=== PATIENT | male | born 1930 | race Hispanic/Latino ===

== ENCOUNTER 2016-12-04 08:23 | Day surgery (SDC) | payer MEDICARE ==
[2016-09-14 08:41] VITALS: BMI 27.3
[2016-12-04 09:10] LABS: ADD MANUAL DIFF? NO
[2016-12-04 09:17] LABS: BASO # 0.02 K/mm3 (0.0-2.0); BASO % 0.4 % (0.0-3.0); EOS # 0.1 (0.0-0.7); EOS % 1.9 % (1.5-5.0); GRAN # 3.49 (1.4-6.5); HEMATOCRIT 40.8 % (42.0-52.0); LYMPH # 1.1 (1.2-3.4); MEAN CELL VOLUME 96.5 fL (80.0-105.0); MEAN CORPUSCULAR HEMOGLOBIN 31.9 pg (25.0-35.0); MEAN CORPUSCULAR HGB CONC 33.1 g/dl (31.0-37.0); MEAN PLATELET VOLUME 10.5 fl (7.0-11.0); MONO # 0.6 (0.1-0.6); MONO % 11.7 % (1.0-6.0); PLATELET COUNT 189 10^3/uL (120.0-450.0); RED CELL DISTRIBUTION WIDTH 13.4 % (11.5-14.5); WHITE BLOOD COUNT 5.3 10^3/ul (4.5-11.0)
[2016-12-04 09:25] LABS: ALB/GLOB RATIO 1.1 (1.1-1.8); ALKALINE PHOSPHATASE 59 U/L (38-133); ALT/SGPT 32 U/L (7-56); AST/SGOT 31 U/L (15-59); BILIRUBIN,TOTAL 1.7 mg/dL (0.2-1.3); BLOOD UREA NITROGEN 21 mg/dL (7-21); CALCIUM 9.2 mg/dL (8.4-10.5); CARBON DIOXIDE 25 mmol/L (21-33); CHLORIDE 103 mmol/L (95-110); GFR AFRICAN-AMERICAN > 60; GLUCOSE,RANDOM 115 mg/dL (70-110); INR 1.05 (0.93-1.08); PARTIAL THROMBOPLASTIN TIME 25.9 Seconds (23.7-30.8); POTASSIUM 4.6 mmol/L (3.6-5.0); SODIUM 140 mmol/L (132-148); TOTAL PROTEIN 7.8 g/dL (5.8-8.3)
[2016-12-04] MEDS ORDERED: Propofol 10 mg/ml Inj (20 ML) ONE (10:02)
[2016-12-04] MEDS ORDERED: Midazolam 2 MG/2 ML VIAL ONE (10:17)
[2016-12-04] MEDS ORDERED: Lactated Ringer's 1,000 ML IV SCH (11:15)
[2016-12-04] MEDS ORDERED: Methylene Blue 10 mg/ml (1ml) Inj ONE (11:19)
--- NOTE | 2016-12-04 11:44 | CARD ---
APPROVED REPORT EKG Measurement Heart [id number] AL [id number] <Conclusion> Sinus rhythm with frequent premature ventricular complexes in a pattern of bigeminy Right bundle branch block Inferior infarct, age undetermined Abnormal ECG
[2016-12-06 15:31] VITALS: BP 130/61; PULSE 61; RESP 16; TEMP 97.4; O2SAT 92
== END 2016-12-04 12:52 | disposition home or self-care (01) ==
LOC: ENDO 08:23
PROVIDERS: ATTEND Internal Medicine Gastroenterology
DX: D12.2 Benign neoplasm of ascending colon (principal); K64.8 Other hemorrhoids; K57.30 Diverticulosis of large intestine without perforation or abscess without bleeding
CPT/HCPCS: 36415; 45380; 45381; 45385; 45388; 80053; 85025; 85610; 85730; 88305; 93005; J2250; J2704; J3010; J7040; J7120; Q9968

== ENCOUNTER 2017-02-19 06:06 | Day surgery (SDC) | payer MEDICARE ==
[2016-09-14 08:41] VITALS: BMI 27.3
[2017-02-19] MEDS ORDERED: Lidocaine 2% Inj (20ml) ONE (06:37)
[2017-02-19] MEDS ORDERED: Atropine 0.4 mg/ml Inj (1 mL) ONE (06:37)
[2017-02-19] MEDS ORDERED: Phenylephrine 10 mg/ml Inj ONE (06:37)
[2017-02-19 06:38] LABS: ADD MANUAL DIFF? NO
[2017-02-19] MEDS ORDERED: Iohexol 350mgl/ml 50 ML ONE (06:38)
[2017-02-19] MEDS ORDERED: Iodixanol 320 MG/ML 100 ML BOTTLE IV ONE (06:38)
[2017-02-19] MEDS ORDERED: Iodixanol 320 MG/ML 200 ML BOTTLE IV ONE (06:38)
[2017-02-19] MEDS ORDERED: Nitroglycerin 50mg in D5W 50 MG/250 ML BOTTLE IV ONE (06:38)
[2017-02-19 06:59] LABS: BLOOD UREA NITROGEN 28 mg/dL (7-21); CARBON DIOXIDE 26 mmol/L (21-33); CHLORIDE 106 mmol/L (98-107); GFR AFRICAN-AMERICAN > 60; GLUCOSE,RANDOM 108 mg/dL (70-110); INR 1.01 (0.93-1.08); PARTIAL THROMBOPLASTIN TIME 26.4 Seconds (23.7-30.8); POTASSIUM 4.9 mmol/L (3.6-5.0); SODIUM 141 mmol/L (132-148)
[2017-02-19 07:03] LABS: BASO # 0.02 K/mm3 (0.0-2.0); BASO % 0.4 % (0.0-3.0); EOS # 0.2 (0.0-0.7); EOS % 3.3 % (1.5-5.0); GRAN # 3.24 (1.4-6.5); GRAN % 60.1 % (50.0-68.0); HEMATOCRIT 39.8 % (42.0-52.0); LYMPH # 1.4 (1.2-3.4); MEAN CELL VOLUME 97.5 fL (80.0-105.0); MEAN CORPUSCULAR HEMOGLOBIN 32.1 pg (25.0-35.0); MEAN CORPUSCULAR HGB CONC 32.9 g/dl (31.0-37.0); MEAN PLATELET VOLUME 10.4 fl (7.0-11.0); MONO # 0.6 (0.1-0.6); MONO % 10.2 % (1.0-6.0); PLATELET COUNT 190 10^3/uL (120.0-450.0); RED CELL DISTRIBUTION WIDTH 13.3 % (11.5-14.5); WHITE BLOOD COUNT 5.4 10^3/ul (4.5-11.0)
[2017-02-19] MEDS ORDERED: Midazolam 2 MG/2 ML VIAL ONE ×2 (07:17→07:33)
[2017-02-19 08:29] VITALS: TEMP 97.9
[2017-02-19] MEDS ORDERED: Sodium Chloride 0.9% 1,000 ML IV SCH (08:30)
[2017-02-19 11:58] VITALS: RESP 18
[2017-02-19 12:42] VITALS: BP 148/73; PULSE 45; O2SAT 99
--- NOTE | 2017-02-19 15:01 | CARD ---
APPROVED REPORT EKG Measurement Heart [id number] NC [id number] <Conclusion> Sinus rhythm with frequent premature ventricular complexes, in a bigeminy pattern Right bundle branch block Inferior infarct, age undetermined Abnormal ECG
--- NOTE | 2017-02-19 16:39 | CARDCATH ---
PROCEDURE DATE: 02/19/2017 HISTORY OF PRESENT ILLNESS: The patient is an 86-year-old male with a history of diabetes mellitus, hypertension and hypercholesterolemia who presents with chest pain. A stress test was abnormal. Bec ause of this, cardiac catheterization was recommended. PROCEDURE: Left heart catheterization with coronary angiography and left ventriculogram. The right femoral artery was cannulated with a 6-[place] sheath. There were no complications. The findings on catheterization revealed a left ventricle that contracted normally. Estimated ejecti on fraction is 55%. His coronary anatomy revealed a right dominant circulation. The RCA was selectively cannulized and found to have intimal irregularities without significant steno sis. The left main artery was unremarkable. The LAD revealed diffuse atherosclerosis and a tortuous mid to distal LAD. In the distal portion of the LAD, there was a 50% stenosis seen. The diagonal vessels revealed intimal irregularities without significant stenosis. The circumflex artery and obtuse marginal branches were free of significant disease. The patient tolerated the procedure well. Angio-Seal was used to close the femoral artery site. SUMMARY: The procedure revealed single vessel coronary artery disease with a 50% stenosis in the dis og portion of the left anterior descending, which would explain his abnormal stress test. The left ventricular function is normal. Given these findings, the patient's treatment will be continued medical therapy with daily aspirin, s tatin therapy and a cardiac risk reduction program. Mitch Hill MD cc: [facility] TT: 02/19/2017 16:38:15 en
== END 2017-02-19 13:50 | disposition home or self-care (01) ==
LOC: CATH 06:06
PROVIDERS: ATTEND Internal Medicine Cardiovascular Disease
DX: I25.10 Atherosclerotic heart disease of native coronary artery without angina pectoris (principal); E78.00 Pure hypercholesterolemia, unspecified
CPT/HCPCS: 36415; 80048; 85025; 85610; 85730; 86850; 86900; 93005; 93458; 99152; C1760; C1769; C2629; J1644; J2250; J3010; J7030; J7040; Q9967 ×2

== ENCOUNTER 2017-04-13 06:48 | Day surgery (SDC) | payer MEDICARE ==
[2016-09-14 08:41] VITALS: BMI 27.3
[2017-04-13 07:07] VITALS: TEMP 98
[2017-04-13] MEDS ORDERED: Methylene Blue 10 mg/mL(10ml) IV ONE (08:03)
[2017-04-13] MEDS ORDERED: Methylene Blue 10 mg/ml (1ml) Inj ONE (08:05)
[2017-04-13] MEDS ORDERED: Propofol 10 mg/ml Inj (20 ML) ONE (09:05)
[2017-04-13] MEDS ORDERED: Sodium Chloride 0.9% 1,000 ML IV SCH (09:45)
[2017-04-13 09:54] VITALS: RESP 16
[2017-04-13 11:11] VITALS: BP 130/76; PULSE 70; O2SAT 96
== END 2017-04-13 11:07 | disposition home or self-care (01) ==
LOC: ENDO 06:48
PROVIDERS: ATTEND Internal Medicine Gastroenterology
DX: D12.2 Benign neoplasm of ascending colon (principal); K57.30 Diverticulosis of large intestine without perforation or abscess without bleeding; K64.8 Other hemorrhoids; I10 Essential (primary) hypertension; E11.9 Type 2 diabetes mellitus without complications
CPT/HCPCS: 45381; 45385; 82948; 88305; J2704; J7040

== ENCOUNTER 2018-09-19 07:13 | Day surgery (SDC) | payer MEDICARE ==
[2016-09-14 08:41] VITALS: BMI 27.3
[2018-09-19] MEDS ORDERED: Propofol 10 mg/ml Inj (20 ML) ONE (08:46)
[2018-09-19] MEDS ORDERED: Etomidate 20 mg/10ml Inj IV ONE (08:47)
[2018-09-19] MEDS ORDERED: Sodium Chloride 0.9% 1,000 ML IV SCH (09:15)
[2018-09-19 10:29] VITALS: RESP 18; TEMP 97.6
[2018-09-19 10:30] VITALS: BP 137/60; PULSE 44; O2SAT 92
== END 2018-09-19 10:38 | disposition home or self-care (01) ==
LOC: ENDO 07:13
PROVIDERS: ATTEND Internal Medicine Gastroenterology
DX: Z12.11 Encounter for screening for malignant neoplasm of colon (principal); D12.5 Benign neoplasm of sigmoid colon; K57.30 Diverticulosis of large intestine without perforation or abscess without bleeding; K64.8 Other hemorrhoids; K62.89 Other specified diseases of anus and rectum; Z86.010 Personal history of colon polyps; E11.9 Type 2 diabetes mellitus without complications; I10 Essential (primary) hypertension
CPT/HCPCS: 45380; 82948; 88305; J2001; J2704; J7030

== ENCOUNTER 2019-01-23 07:17 | Outpatient (CLI) | payer MEDICARE | END 2019-01-23 07:18 | disposition home or self-care (01) | LOC: CARDIO 07:17 ==